=== PATIENT | female | born 1980 | race Caucasian/White ===

== ENCOUNTER 2017-07-13 12:11 | Emergency (ER) | payer OTHER ==
[~2017-07-13] VITALS: Ht 172.7 cm; Wt 127.0 kg
[~2017-07-13 12:11] MED LIST: ACEBUTCAFT PO; BENTYL10 MG PO; CEPH500 PO; CITA20 PO; CYCL10 PO; Crutch1 EACH MISC; IBUP800 PO; LABE100 PO; LOSA25 PO; Norco 5-325 Ta1 EACH PO; OXYACE5T PO; SULF10OPSA OD
[2017-07-13 13:04] LABS: BASOPHILS ABSOLUTE AUTO 0.05 K/mm3 (0.00-0.23); BASOPHILS PERCENT AUTO 1 % (0-2); EOSINOPHILS ABSOLUTE AUTO 0.16 K/mm3 (0.00-0.68); EOSINOPHILS PERCENT AUTO 2 % (0-6); Hematocrit 44.3 % (33.0-51.0); Hemoglobin 14.5 g/dL (11.5-16.0); IMMATURE GRAN ABSOLUTE AUTO 0.05 K/mm3 (0.00-0.10); IMMATURE GRAN PERCENT AUTO 1 % (0-1); LYMPHOCYTES ABSOLUTE AUTO 2.11 K/mm3 (0.84-5.20); LYMPHOCYTES PERCENT AUTO 24 % (21-46); MONOCYTES ABSOLUTE AUTO 0.72 K/mm3 (0.16-1.47); MONOCYTES PERCENT AUTO 8 % (4-13); Mean Corpuscular HGB Conc 32.7 g/dL (31.5-36.5); Mean Corpuscular Volume 89 fL (80-100); Mean Platelet Volume 9.9 fL (9.1-12.4); NEUTROPHILS ABSOLUTE AUTO 5.76 K/mm3 (1.96-9.15); NEUTROPHILS PERCENT AUTO 65 % (41-73); Platelet Count 280 K/mm3 (150-400); RDW Coefficient Variation 13.9 % (11.7-14.2); RDW Standard Deviation 44.7 fL (35.1-46.3); White Blood Cell Count 8.85 K/mm3 (4.00-11.30)
[2017-07-13 13:22] LABS: Alanine Aminotransfer (ALT/SGP 88 U/L (12-78); Albumin, Blood 3.5 g/dL (3.4-5.0); Albumin/Globulin Ratio 0.8 (0.8-1.8); Alk Phos 72 U/L (50-136); Anion Gap 8 mmol/L (6-16); Aspartate Aminotrans (AST/SGOT 84 U/L (12-37); Bilirubin, Total 0.5 mg/dL (0.1-1.0); Blood Urea Nitrogen 7 mg/dL (8-24); Bun/Creatinine Ratio 11.8 (12.0-20.0); CO2, Blood 29 mmol/L (21-32); Calcium, Blood 8.5 mg/dL (8.5-10.1); Chloride, Blood 104 mmol/L (98-108); Creatinine, Blood 0.59 mg/dL (0.40-1.00); Globulin, Blood 4.3 g/dL (2.2-4.0); Glomerular Filtration Rate >60 (60-); Glucose, Blood 101 mg/dL (70-99); Potassium, Blood 3.7 mmol/L (3.5-5.5); Sodium, Blood 141 mmol/L (136-145); Total Protein, Blood 7.8 g/dL (6.4-8.2)
[2017-07-13] MEDS ORDERED: HYDR1TAB94 PO (15:32)
== END 2017-07-13 15:58 | disposition home or self-care (01) ==
LOC: ER 12:11
PROVIDERS: Psychiatry & Neurology Psychiatry
DX: N83.202 Unspecified ovarian cyst, left side (principal); N83.201 Unspecified ovarian cyst, right side; F17.200 Nicotine dependence, unspecified, uncomplicated; Z79.899 Other long term (current) drug therapy
CPT/HCPCS: 36415; 74176; 80053; 81025; 85025; 96374; 99284; J1885

== ENCOUNTER → 2017-11-18 | Outpatient (CLI) | payer OTHER ==
[~2017-11-18] MED LIST changes: +HYDR1TAB94 PO
== END | disposition home or self-care (01) ==
LOC: LAB 16:41 → LAB SHORT 16:41
PROVIDERS: Obstetrics & Gynecology
DX: Z12.4 Encounter for screening for malignant neoplasm of cervix (principal)
CPT/HCPCS: 87624; G0123

== ENCOUNTER 2017-12-23 07:54 | Observation (INO) | payer OTHER ==
[~2017-12-23] VITALS: Ht 170.2 cm; Wt 127.5 kg
[2017-12-23 08:59] LABS: BASOPHILS ABSOLUTE AUTO 0.09 K/mm3 (0.00-0.23); BASOPHILS PERCENT AUTO 1 % (0-2); EOSINOPHILS ABSOLUTE AUTO 0.34 K/mm3 (0.00-0.68); EOSINOPHILS PERCENT AUTO 2 % (0-6); IMMATURE GRAN ABSOLUTE AUTO 0.16 K/mm3 (0.00-0.10); IMMATURE GRAN PERCENT AUTO 1 % (0-1); LYMPHOCYTES ABSOLUTE AUTO 2.02 K/mm3 (0.84-5.20); LYMPHOCYTES PERCENT AUTO 12 % (21-46); MONOCYTES ABSOLUTE AUTO 0.76 K/mm3 (0.16-1.47); MONOCYTES PERCENT AUTO 4 % (4-13); Mean Corpuscular HGB Conc 33.3 g/dL (31.5-36.5); Mean Corpuscular Volume 90 fL (80-100); NEUTROPHILS ABSOLUTE AUTO 13.96 K/mm3 (1.96-9.15); NEUTROPHILS PERCENT AUTO 81 % (41-73); Platelet Count 375 K/mm3 (150-400); RDW Coefficient Variation 13.3 % (11.7-14.2); RDW Standard Deviation 43.9 fL (35.1-46.3); Red Blood Cell Count 4.33 M/mm3 (3.80-5.20); White Blood Cell Count 17.33 K/mm3 (4.00-11.30)
[2017-12-23 09:26] LABS: Alanine Aminotransfer (ALT/SGP 33 U/L (12-78); Albumin, Blood 2.9 g/dL (3.4-5.0); Albumin/Globulin Ratio 0.7 (0.8-1.8); Alk Phos 77 U/L (50-136); Anion Gap 13 mmol/L (6-16); Aspartate Aminotrans (AST/SGOT 34 U/L (12-37); Bilirubin, Total 0.3 mg/dL (0.1-1.0); Blood Urea Nitrogen 8 mg/dL (8-24); Bun/Creatinine Ratio 13.4 (12.0-20.0); CO2, Blood 20 mmol/L (21-32); Calcium, Blood 8.2 mg/dL (8.5-10.1); Chloride, Blood 107 mmol/L (98-108); Globulin, Blood 4.4 g/dL (2.2-4.0); Glomerular Filtration Rate >60 (60-); Glucose, Blood 131 mg/dL (70-99); Potassium, Blood 3.7 mmol/L (3.5-5.5); Sodium, Blood 140 mmol/L (136-145); Total Protein, Blood 7.3 g/dL (6.4-8.2)
[2017-12-23 10:19] LABS: Source, Urine Clean Catch
[2017-12-23 10:23] LABS: Bilirubin, Urine Neg (Neg); Blood, Urine 5+ (Neg); Glucose Qualitative, Urine Neg (Neg); Ketones, Urine 1+ (Neg); Leukocyte Esterase, Urine 3+ (Neg); Nitrite, Urine Neg (Neg); Protein, Urine 2+ (Neg); Specific Gravity, Urine 1.005 (1.003-1.022); Urobilinogen, Urine NORM (Normal); pH, Urine 6.5 (5.0-8.0)
[2017-12-23 10:38] LABS: Appearance, Urine Cloudy (Clear); Color, Urine Red (P-Yellow)
[2017-12-23 10:39] LABS: Red Blood Cells, Urine TNTC /hpf (0-2); Squamous Epithelial Cells Few /hpf (Few); White Blood Cells, Urine 25-50 /hpf (0-5)
[2017-12-23 10:40] LABS: Bacteria Few /hpf
[2017-12-24] MEDS ORDERED: OXYC10TA19 PO (09:34)
[2017-12-24] MEDS ORDERED: AMOCLA500 PO (09:34)
== END 2017-12-24 13:51 | disposition home or self-care (01) ==
LOC: ER 07:54 → SURS 07:55 → ER 11:35 → SURS 11:35
PROVIDERS: Physician Assistant; Surgery
PROC: 0D9QXZZ Drainage of Anus, External Approach (ICD-10-PCS; principal; 2017-12-23 13:15)
DX: K61.0 Anal abscess (principal); I10 Essential (primary) hypertension; Z79.899 Other long term (current) drug therapy
CPT/HCPCS: 36415; 74177; 80053; 81001; 81025; 83605; 85025; 87040; 87077; 87086; 87186; 96361; 96365; 96375; 96376; 99285-25; G0378; J0295; J1100; J1170; J1885; J2250; J2405; J3010; J3370; J7030; J7050; J7120; Q9967

== ENCOUNTER 2018-10-22 10:05 | Emergency (ER) | payer OTHER ==
[~2018-10-22] VITALS: Ht 172.7 cm; Wt 136.1 kg
[~2018-10-22 10:05] MED LIST changes: +AMOCLA500 PO; +OXYC10TA19 PO
[2018-11-28] MEDS ORDERED: TOPI50 (08:19)
[2018-11-28] MEDS ORDERED: JOLESSA 0.15 M1 EACH (08:19)
[2018-11-28] MEDS ORDERED: LOSA50 (08:19)
[2018-11-28] MEDS ORDERED: AMLO10 (08:19)
[2018-11-28] MEDS ORDERED: METO100 (08:20)
== END 2018-10-22 11:04 | disposition home or self-care (01) ==
LOC: ER 10:05
DX: J02.9 Acute pharyngitis, unspecified (principal); I88.9 Nonspecific lymphadenitis, unspecified; Z79.899 Other long term (current) drug therapy; I10 Essential (primary) hypertension; Z87.891 Personal history of nicotine dependence
CPT/HCPCS: 87081; 87430; 99283; J1100

== ENCOUNTER 2018-12-08 11:47 | Day surgery (SDC) | payer OTHER ==
[~2018-12-08] VITALS: Ht 170.2 cm; Wt 120.1 kg
[~2018-12-08 11:47] MED LIST changes: +AMLO10; +JOLESSA 0.15 M1 EACH; +LOSA50; +METO100; +TOPI50
--- NOTE | 2018-12-08 15:09 | NUR ---
12/08/18 1509 Francisco Javier Adams S PATIENT SITTING UP IN RECLINCER CHAIR EATING CRACKERS AND DRINKING SODA. DENIES N/V AT THIS TIME. PATIENT STATES PAIN IS BETTER NOW AT 5/10 AND DENIES THE NEED FOR PAIN MEDS AT THIS TIME. VSS
== END 2018-12-08 16:08 | disposition home or self-care (01) ==
LOC: ORSCSDS 11:47
PROVIDERS: Obstetrics & Gynecology
PROC: 0DNW4ZZ Release Peritoneum, Percutaneous Endoscopic Approach (ICD-10-PCS; principal; 2018-12-08 13:00)
PROC: 0UT64ZZ Resection of Left Fallopian Tube, Percutaneous Endoscopic Approach (ICD-10-PCS; principal; 2018-12-08 13:00)
DX: N94.89 Other specified conditions associated with female genital organs and menstrual cycle (principal); N73.6 Female pelvic peritoneal adhesions (postinfective); N80.3 Endometriosis of pelvic peritoneum; I10 Essential (primary) hypertension; E66.01 Morbid (severe) obesity due to excess calories; Z68.41 Body mass index [BMI] 40.0-44.9, adult; Z79.899 Other long term (current) drug therapy
CPT/HCPCS: 88305; 93005; 93010; J0171; J1100; J2250; J2405; J2704; J2710; J3010; J7120

== ENCOUNTER → 2020-06-07 | Outpatient (CLI) | payer OTHER | END | disposition home or self-care (01) | LOC: LAB SHORT 09:40 → LAB EV 09:40 | DX: N39.0 Urinary tract infection, site not specified (principal) | CPT/HCPCS: 87077; 87086; 87186 ==

== ENCOUNTER 2021-02-16 13:23 | Emergency (ER) | payer OTHER ==
[~2021-02-16] VITALS: Ht 170.2 cm; Wt 120.2 kg
[2021-02-16 14:26] LABS: BASOPHILS ABSOLUTE AUTO 0.09 K/mm3 (0.00-0.23); BASOPHILS PERCENT AUTO 1 % (0-2); EOSINOPHILS ABSOLUTE AUTO 0.03 K/mm3 (0.00-0.68); EOSINOPHILS PERCENT AUTO 0 % (0-6); Hematocrit 44.9 % (33.0-51.0); Hemoglobin 14.8 g/dL (11.5-16.0); IMMATURE GRAN ABSOLUTE AUTO 0.06 K/mm3 (0.00-0.10); IMMATURE GRAN PERCENT AUTO 1 % (0-1); LYMPHOCYTES ABSOLUTE AUTO 1.41 K/mm3 (0.84-5.20); LYMPHOCYTES PERCENT AUTO 12 % (21-46); MONOCYTES ABSOLUTE AUTO 0.96 K/mm3 (0.16-1.47); MONOCYTES PERCENT AUTO 8 % (4-13); Mean Corpuscular HGB 30.5 pg (26.0-34.0); Mean Corpuscular Volume 93 fL (80-100); Mean Platelet Volume 10.3 fL (9.1-12.4); NEUTROPHILS ABSOLUTE AUTO 9.64 K/mm3 (1.96-9.15); NEUTROPHILS PERCENT AUTO 79 % (41-73); Platelet Count 284 K/mm3 (150-400); RDW Standard Deviation 54.4 fL (35.1-46.3); Red Blood Cell Count 4.85 M/mm3 (3.80-5.20); White Blood Cell Count 12.19 K/mm3 (4.00-11.30)
[2021-02-16 14:51] LABS: Alanine Aminotransfer (ALT/SGP 84 U/L (12-78); Albumin, Blood 3.6 g/dL (3.4-5.0); Albumin/Globulin Ratio 0.8 (0.8-1.8); Alk Phos 82 U/L (50-136); Anion Gap 7 mmol/L (6-16); Aspartate Aminotrans (AST/SGOT 124 U/L (12-37); Bilirubin, Total 1.1 mg/dL (0.1-1.0); Blood Urea Nitrogen 12 mg/dL (8-24); Bun/Creatinine Ratio 13.7 (12.0-20.0); CO2, Blood 29 mmol/L (21-32); Calcium, Blood 9.3 mg/dL (8.5-10.1); Chloride, Blood 103 mmol/L (98-108); Creatinine, Blood 0.87 mg/dL (0.40-1.00); Globulin, Blood 4.5 g/dL (2.2-4.0); Glomerular Filtration Rate >60 (60-); Glucose, Blood 136 mg/dL (70-99); Potassium, Blood 3.9 mmol/L (3.5-5.5); Sodium, Blood 139 mmol/L (136-145); Total Protein, Blood 8.1 g/dL (6.4-8.2)
[2021-02-16 16:26] LABS: Source, Urine Clean Catch
[2021-02-16 16:38] LABS: Appearance, Urine Hazy (Clear); Blood, Urine 5+ (Neg); Color, Urine Amber (P-Yellow); Glucose Qualitative, Urine Neg (Neg); Ketones, Urine 1+ (Neg); Leukocyte Esterase, Urine 2+ (Neg); Nitrite, Urine Neg (Neg); Protein, Urine 3+ (Neg); Specific Gravity, Urine 1.015 (1.003-1.022); Urobilinogen, Urine 1+ (Normal)
[2021-02-16 16:52] LABS: Magnesium, Blood 1.2 mg/dL (1.6-2.4); Troponin I <0.015 ng/mL (0.000-0.040)
[2021-02-16 16:55] LABS: Bilirubin, Urine 1+ (Neg)
[2021-02-16 16:57] LABS: Red Blood Cells, Urine 50-100 /hpf (0-2); Squamous Epithelial Cells Few /hpf (Few)
[2021-02-16 16:58] LABS: Bacteria Mod /hpf
[2021-02-16 17:44] LABS: SARS-Cov-2 (COVID-19) PCR, MMC NEGATIVE (NEGATIVE)
[2021-02-16] MEDS ORDERED: B-1100 M1 PO (21:31)
[2021-02-16] MEDS ORDERED: ALMACONE SUSPE355 ML PO (21:31)
[2021-02-16] MEDS ORDERED: FAMO20 PO (21:31)
[2021-02-16] MEDS ORDERED: FOLI1 PO (21:31)
[2021-02-16] MEDS ORDERED: CHLO25 PO (21:31)
== END 2021-02-16 22:03 | disposition home or self-care (01) ==
LOC: ER 13:23
PROVIDERS: Emergency Medicine; Student in an Organized Health Care Education/Training Program
DX: K29.70 Gastritis, unspecified, without bleeding (principal); F10.20 Alcohol dependence, uncomplicated; E83.42 Hypomagnesemia; R00.0 Tachycardia, unspecified; I10 Essential (primary) hypertension; F17.200 Nicotine dependence, unspecified, uncomplicated; Z20.822 Contact with and (suspected) exposure to COVID-19; Z79.899 Other long term (current) drug therapy
CPT/HCPCS: 36415; 71045; 76705; 80053; 81001; 81025; 83690; 83735; 84484; 85025; 87086; 93005; 93010; 96365; 96366; 96375; 99285-25; A9270; J1885; J2405; J3475; J7030; J7042; U0004